=== PATIENT | female | born 1985 | race Caucasian/White ===

== ENCOUNTER 2020-10-21 12:01 | Emergency (ER) | payer SELFPAY ==
[2020-10-21 14:04] LABS: Urine Blood Negative (Negative); Urine Glucose Negative (Negative); Urine Protein Negative (Negative); Urine pH 7.5 (5.0-7.0)
[2020-10-21] MEDS ORDERED: NA CHLORIDE 0.9% 1,000 ML ONE (14:12)
--- NOTE | 2020-10-21 14:20 | RAD REPORT ---
EXAM DESCRIPTION: CT - Head Brain Wo Cont - 10/21/2020 2:03 pm CLINICAL HISTORY: HEADACHE COMPARISON: <Comparisons> TECHNIQUE: Axial 5 mm thick images of the head were obtained without IV contrast. All CT scans are performed using dose optimization technique as appropriate and may include automated exposure control or mA/KV adjustment according to patient size. FINDINGS: No intracranial hemorrhage, mass, edema or shift of mid-line structures. No acute infarcti on changes seen. No abnormal extra-axial fluid collections. Ventricles are normal. Mastoid air cells and visualized portions of the paranasal sinuses are clear. No acute bony findings. IMPRESSION: Negative non-contrast CT head examination.
[2020-10-21 14:29] LABS: Absolute Lymphocytes (CBC) 1.8 K/uL (0.7-4.9); Basophils % 1.1 % (0-1.3); Hematocrit 39.8 % (36.0-45.0); Lymphocytes % 30.6 % (15.3-44.8); MPV 7.8 fL (7.6-11.3); RBC Red Blood Cell Count 4.01 M/uL (3.86-4.86)
[2020-10-21 14:42] LABS: Protime INR 0.93
[2020-10-21 14:46] LABS: Urine Bacteria <20 /HPF (<20); Urine RBC <5 /HPF (NONE SEEN)
[2020-10-21 14:49] LABS: Barbiturates NEGATIVE (NEGATIVE); Benzodiazepines NEGATIVE (NEGATIVE); Cocaine NEGATIVE (NEGATIVE); METHAMPHETAM NEGATIVE (NEGATIVE); Methadone NEGATIVE (NEGATIVE); Opiates NEGATIVE (NEGATIVE); Phencyclidine NEGATIVE (NEGATIVE); THC Cannibis POSITIVE (NEGATIVE)
[2020-10-21 15:11] LABS: ALT/SGPT 16 U/L (12-78); AST/SGOT 9 U/L (15-37); Albumin 3.6 g/dL (3.4-5.0); Alkaline Phosphatase 47 U/L (45-117); BUN Blood Urea Nitrogen 6 mg/dL (7-18); Bicarbonate 28 mmol/L (21-32); Bilirubin Direct < 0.1 mg/dL (0-0.2); Bilirubin Total 0.2 mg/dL (0.2-1.0); Glucose Level 87 mg/dL (74-106); Potassium 4.1 mmol/L (3.5-5.1); Protein, Total 6.1 g/dL (6.4-8.2); Sodium Level 141 mmol/L (136-145)
--- NOTE | 2020-10-21 19:48 | EDPHYS ---
Physician Documentation [facility] Name: Brittni Juarez Age: 35 yrs Sex: Female : 1985 Arrival Date: 10/21/2020 Time: 12:02 Bed 18 Private MD: ED Physician Elfego Orantes HPI: 10/21 14:03 This 35 yrs old Female presents to ER via Ambulatory with complaints of pm1 Headache - heat exhaustion, Suicidal Ideation. 14:03 The patient presents to the emergency department with suicide ideation. Onset: The pm1 symptoms/episode began/occurred 2 month(s) ago. Past psychiatric history: Prior diagnosis: bipolar disorder, PTSD, Psychiatric medications include: none, Primary psychiatric physician: the patient does not have a primary psychiatric physician, the patient has a previous inpatient psychiatric history, 1 year(s) ago, for suicidal ideation. Associated signs and symptoms: Pertinent positives; headache, Pertinent negatives: abdominal pain, chest pain, fever, nausea, shortness of breath, vomiting. Severity of symptoms: in the emergency department the symptoms are unchanged. The patient has not recently seen a physician. 14:03 Patient's plan is to cut her own throat. pm1 Historical: - Allergies: 12:21 Bactrim DS; ll1 12:21 Keflex; ll1 12:21 Erythromycin; ll1 - PMHx: 12:21 PTSD; bipolar 1; pre-diabetes; ll1 - PSHx: 12:21 Tubal ligation; growth removed from finger; ll1 - Immunization history:: Client reports having NOT received the Covid vaccine. Flu vaccine is up to date. - Social history:: Smoking status: Patient reports the use of cigarette tobacco products, smokes one-half pack cigarettes per day. ROS: 14:03 Constitutional: Negative for fever, chills, and weight loss, Eyes: Negative for injury, pm1 pain, redness, and discharge, ENT: Negative for injury, pain, and discharge, Neck: Negative for injury, pain, and swelling, Cardiovascular: Negative for chest pain, palpitations, and edema, Respiratory: Negative for shortness of breath, cough, wheezing, and pleuritic chest pain, Abdomen/GI: Negative for abdominal pain, nausea, vomiting, diarrhea, and constipation, Back: Negative for injury and pain. 14:03 : Negative for injury, bleeding, discharge, and swelling, MS/Extremity: Negative for injury and deformity, Skin: Negative for injury, rash, and discoloration. 14:03 Neuro: Positive for headache. Exam: 14:03 Constitutional: This is a well developed, well nourished patient who is awake, alert, pm1 and in no acute distress. Head/Face: Normocephalic, atraumatic. 14:03 Neck: Trachea midline, no thyromegaly or masses palpated, and no cervical lymphadenopathy. Supple, full range of motion without nuchal rigidity, or vertebral point tenderness. No Meningismus. 14:03 Back: No spinal tenderness. No costovertebral tenderness. Full range of motion. Skin: Warm, dry with normal turgor. Normal color with no rashes, no lesions, and no evidence of cellulitis. MS/ Extremity: Pulses equal, no cyanosis. Neurovascular intact. Full, normal range of motion. 14:03 Eyes: Exam is negative for acute changes, Extraocular movements: no acute changes, Conjunctiva: normal, no injection. 14:03 ENT: Exam is negative for acute changes, Mouth: Lips: normal, Oral mucosa: normal, pink and intact, moist. 14:03 Cardiovascular: Exam negative for acute changes, Rate: normal, Rhythm: regular, Pulses: no pulse deficits are appreciated, Edema: is not appreciated. 14:03 Respiratory: Exam negative for acute changes, respiratory distress, shortness of breath, Breath sounds: are clear throughout. 14:03 Abdomen/GI: Inspection: abdomen appears normal, Palpation: abdomen is soft and non-tender, in all quadrants. 14:03 Neuro: Exam negative for acute changes, Orientation: is normal, Mentation: is normal, Motor: is normal, moves all fours, Sensation: is normal, no obvious gross deficits. Vital Signs: 12:18 BP 139 / 97; Pulse 99; Resp 17; Temp 98.7; Pulse Ox 100% ; Weight 56.7 kg; Height 5 ft. ll1 1 in. (154.94 cm); Pain 8/10; 19:35 BP 108 / 66; Pulse 72; Resp 16; Temp 98.4; Pulse Ox 98% on R/A; mh5 10/22 07:44 BP 112 / 63; Pulse 71; Resp 17; Temp 98.6; Pulse Ox 99% ; rb3 10/21 12:18 Body Mass Index 23.62 (56.70 kg, 154.94 cm) ll1 MDM: 10/21 13:28 Patient medically screened. pm1 14:03 Data reviewed: vital signs. Data interpreted: Pulse oximetry: on room air is 100 %. pm1 Interpretation: normal. 17:36 ED course: Pending [facility] Evaluation. pm1 19:47 Counseling: I had a detailed discussion with the patient and/or guardian regarding: the pm1 historical points, exam findings, and any diagnostic results supporting the discharge/admit diagnosis, lab results, radiology results, the need to transfer to another facility, [facility] does not immediately have the required specialist. 10/22 00:58 ED course: Patient sleeping comfortably in bed. Patient reports continued feelings of pm1 suicidal ideation. 13:39 ED course: Patient with continued suicidal ideation. She is voluntarily and she wants pm1 to get help in an inpatient setting. 14:02 Physician consultation: MD Alfaro was contacted at 14:03, regarding regarding transfer, pm1 patient's condition, and will see patient. 10/21 13:44 Order name: Acetaminophen; Complete Time: 16:54 pm1 10/21 13:44 Order name: Basic Metabolic Panel; Complete Time: 16:54 pm1 10/21 13:44 Order name: CBC with Diff; Complete Time: 14:39 pm1 10/21 13:44 Order name: ETOH Level; Complete Time: 16:54 pm1 10/21 13:44 Order name: Hepatic Function; Complete Time: 16:54 pm1 10/21 13:44 Order name: PT-INR; Complete Time: 14:44 pm1 10/21 13:44 Order name: Ptt, Activated; Complete Time: 14:44 pm1 10/21 13:44 Order name: Salicylate; Complete Time: 14:48 pm1 10/21 13:44 Order name: Urine Drug Screen; Complete Time: 16:54 pm1 10/21 14:04 Order name: Urine Dipstick-Ancillary EDNM 10/21 14:05 Order name: Urine Microscopic Only iw 10/21 14:06 Order name: Urine Microscopic Only; Complete Time: 14:48 EDMS 10/21 17:01 Order name: Urine --Ancillary (enter results); Complete Time: 18:36 eb 10/21 17:42 Order name: COVID-19 : Document "Date of Symptom Onset" if Symptomatic. pm1 10/21 13:44 Order name: Urine Test (obtain specimen); Complete Time: 14:47 pm1 10/21 13:44 Order name: EKG; Complete Time: 13:44 pm1 10/21 13:44 Order name: EKG - Nurse/Tech; Complete Time: 16:19 pm1 10/21 13:44 Order name: IV Saline Lock; Complete Time: 14:24 pm10/21 13:44 Order name: Labs collected and sent; Complete Time: 14:24 pm10/21 13:44 Order name: Suicide Screening ([place]); Complete Time: 17:04 pm10/21 13:44 Order name: Urine Dipstick-Ancillary (obtain specimen); Complete Time: 14:24 pm10/21 13:44 Order name: CT Head Brain wo Cont; Complete Time: 14:21 pm10/21 17:46 Order name: Diet Regular; Complete Time: 17:47 [facility] 10/21 21:19 Order name: SARS-COV-2 RT PCR; Complete Time: 21:27 [facility] 10/22 09:02 Order name: Diet Regular; Complete Time: 09:02 rb3 Administered Medications: 10/21 14:14 Drug: NS 0.9% 1000 ml Route: IV; Rate: 1000 ml; Site: right antecubital; rb3 15:13 Follow up: IV Status: Completed infusion rb3 Disposition: 10/21/20 19:47 Transfer ordered to [facility]. Diagnosis is Suicidal ideations. - Reason for transfer: Specialty. - Accepting physician is MD. - Condition is Stable. - Problem is new. - Symptoms are unchanged. Addendum: 10/25/2020 11:33 Co-signature as Attending Physician, Elfego Orantes MD I agree with the assessment and c barba plan of care. Signatures: Dispatcher [employer] Elfego Moon MD MD cha Marinas, Patrick, KNOTTER KNOTTER pm1 Vernon Alvarez, RN RN ll1 Roxanne Gerard, KAREN RN rb3 Corrections: (The following items were deleted from the chart) 10/21 20:40 17:43 CORONAVIRUS ordered. [facility] 10/22 15:14 10/21 19:47 10/21/2020 19:47 Transfer ordered to Psych Facility. Diagnosis is Suicidal rb3 ideations. Reason for transfer: Specialty. Accepting physician is MD. Condition is Stable. Problem is new. Symptoms are unchanged. pm1
--- NOTE | 2020-10-21 19:48 | ER ---
Nurse's Notes [facility] Name: Brittni Juarez Age: 35 yrs Sex: Female : 1985 Arrival Date: 10/21/2020 Time: 12:02 Bed 18 Private MD: Diagnosis: Suicidal ideations Presentation: 10/21 12:18 Chief complaint: Patient states: Reports [facility] for 2 weeks. States she has been having ll1 suicidal thoughts for 2 months, "I'm gonna cut my own throat". Night terrors. No place to live, out in the heat constantly. Coronavirus screen: Client denies travel out of the [place] in the last 14 days. At this time, the client does not indicate any symptoms associated with coronavirus-19. Ebola Screen: Patient denies travel to an Ebola-affected area in the 21 days before illness onset. Initial Sepsis Screen: Does the patient meet any 2 criteria? HR > 90 bpm. No. Patient's initial sepsis screen is negative. Does the patient have a suspected source of infection? No. Patient's initial sepsis screen is negative. Risk Assessment: Do you want to hurt yourself or someone else? Patient reports desire/thoughts of hurting themselves or someone else. Provider notified. Onset of symptoms was August 21, 2020. 12:18 Method Of Arrival: Ambulatory ll1 12:18 Acuity: ALHAJI 2 ll1 Triage Assessment: 13:30 Headache History: The patient has had previous headaches and this one is similar to rb3 previous episodes. Historical: - Allergies: 12:21 Bactrim DS; ll1 12:21 Keflex; ll1 12:21 Erythromycin; ll1 - PMHx: 12:21 PTSD; bipolar 1; pre-diabetes; ll1 - PSHx: 12:21 Tubal ligation; growth removed from finger; ll1 - Immunization history:: Client reports having NOT received the Covid vaccine. Flu vaccine is up to date. - Social history:: Smoking status: Patient reports the use of cigarette tobacco products, smokes one-half pack cigarettes per day. Screenin:30 Abuse screen: Denies threats or abuse. Nutritional screening: No deficits noted. rb3 Tuberculosis screening: No symptoms or risk factors identified. Fall Risk None identified. Assessment: 13:30 General: Appears in no apparent distress. Behavior is calm, cooperative, Denies fever. rb3 Pain: Complains of pain in headache Pain currently is 7 out of 10 on a pain scale. Neuro: Level of Consciousness is awake, alert, obeys commands, Oriented to person, place, time, situation, Reports headache in entire. Cardiovascular: Patient's skin is warm and dry. Respiratory: Airway is patent Respiratory effort is even, unlabored, Respiratory pattern is regular, symmetrical. GI: No signs and/or symptoms were reported involving the gastrointestinal system. : No signs and/or symptoms were reported regarding the genitourinary system. 14:30 Reassessment: Patient appears in no apparent distress at this time. Patient and/or rb3 family updated on plan of care and expected duration. Pain level reassessed. Patient is alert, oriented x 3, equal unlabored respirations, skin warm/dry/pink. 15:22 Reassessment: Patient appears in no apparent distress at this time. No changes from rb3 previously documented assessment. 16:19 Reassessment: Patient appears in no apparent distress at this time. pt. resting with rb3 eyes closed, respirations even, unlabored. 17:04 Reassessment: Patient appears in no apparent distress at this time. No changes from rb3 previously documented assessment. 18:04 Reassessment: Patient appears in no apparent distress at this time. Pt. is resting with rb3 eyes closed, respirations even, unlabored. 18:20 Reassessment: Pt. is talking with [employer]Fire via iPad. rb3 19:00 Reassessment: Patient appears in no apparent distress at this time. No changes from jm8 previously documented assessment. Patient and/or family updated on plan of care and expected duration. Pain level reassessed. Patient is alert, oriented x 3, equal unlabored respirations, skin warm/dry/pink. 20:00 Reassessment: Patient appears in no apparent distress at this time. No changes from jm8 previously documented assessment. Patient and/or family updated on plan of care and expected duration. Pain level reassessed. Patient is alert, oriented x 3, equal unlabored respirations, skin warm/dry/pink. 21:00 Reassessment: Patient appears in no apparent distress at this time. No changes from jm8 previously documented assessment. Patient and/or family updated on plan of care and expected duration. Pain level reassessed. Patient is alert, oriented x 3, equal unlabored respirations, skin warm/dry/pink. 22:00 Reassessment: Patient appears in no apparent distress at this time. No changes from 8 previously documented assessment. Patient and/or family updated on plan of care and expected duration. Pain level reassessed. Patient is alert, oriented x 3, equal unlabored respirations, skin warm/dry/pink. 23:00 Reassessment: Patient appears in no apparent distress at this time. No changes from jm8 previously documented assessment. Patient and/or family updated on plan of care and expected duration. Pain level reassessed. Patient is alert, oriented x 3, equal unlabored respirations, skin warm/dry/pink. 10/22 00:00 Reassessment: Patient appears in no apparent distress at this time. No changes from 8 previously documented assessment. Patient and/or family updated on plan of care and expected duration. Pain level reassessed. Patient is alert, oriented x 3, equal unlabored respirations, skin warm/dry/pink. 01:00 Reassessment: Patient appears in no apparent distress at this time. No changes from 8 previously documented assessment. Patient and/or family updated on plan of care and expected duration. Pain level reassessed. Patient is alert, oriented x 3, equal unlabored respirations, skin warm/dry/pink. 02:01 Reassessment: Patient appears in no apparent distress at this time. No changes from 8 previously documented assessment. Patient and/or family updated on plan of care and expected duration. Pain level reassessed. Patient is alert, oriented x 3, equal unlabored respirations, skin warm/dry/pink. 03:00 Reassessment: Patient appears in no apparent distress at this time. No changes from 8 previously documented assessment. Patient and/or family updated on plan of care and expected duration. Pain level reassessed. Patient is alert, oriented x 3, equal unlabored respirations, skin warm/dry/pink. 04:00 Reassessment: Patient appears in no apparent distress at this time. No changes from 8 previously documented assessment. Patient and/or family updated on plan of care and expected duration. Pain level reassessed. Patient is alert, oriented x 3, equal unlabored respirations, skin warm/dry/pink. 05:00 Reassessment: Patient appears in no apparent distress at this time. No changes from jm8 previously documented assessment. Patient and/or family updated on plan of care and expected duration. Pain level reassessed. Patient is alert, oriented x 3, equal unlabored respirations, skin warm/dry/pink. 06:00 Reassessment: Patient appears in no apparent distress at this time. jm8 07:00 Reassessment: Pt resting with eyes closed, respirations even, unlabored. rb3 08:00 Reassessment: Patient appears in no apparent distress at this time. No changes from rb3 previously documented assessment. 09:00 Reassessment: Patient appears in no apparent distress at this time. pt. is resting with rb3 eyes closed, respirations even, unlabored. 10:00 Reassessment: Patient appears in no apparent distress at this time. No changes from rb3 previously documented assessment. 11:00 Reassessment: Patient appears in no apparent distress at this time. pt. is resting with rb3 eyes closed, respirations even, unlabored. Responds when spoken to. 12:00 Reassessment: Pt. is resting with eyes closed, respirations even, unlabored. rb3 12:30 Reassessment: Gave report to KAREN Crawford at [facility]. She requested that Dr. Orantes rb3 contacts the [facility] Resident at [phone]. Gurinder Parsons Clerk notified. 13:00 Reassessment: Patient appears in no apparent distress at this time. Pt is resting with rb3 eyes closed, respirations even, unlabored. 14:00 Reassessment: Patient appears in no apparent distress at this time. No changes from rb3 previously documented assessment. 15:00 Reassessment: Patient appears in no apparent distress at this time. Pt. is resting with rb3 eyes closed, respirations even, unlabored. Vital Signs: 10/21 12:18 BP 139 / 97; Pulse 99; Resp 17; Temp 98.7; Pulse Ox 100% ; Weight 56.7 kg; Height 5 ft. ll1 1 in. (154.94 cm); Pain 8/10; 19:35 BP 108 / 66; Pulse 72; Resp 16; Temp 98.4; Pulse Ox 98% on R/A; mh5 10/22 07:44 BP 112 / 63; Pulse 71; Resp 17; Temp 98.6; Pulse Ox 99% ; rb3 10/21 12:18 Body Mass Index 23.62 (56.70 kg, 154.94 cm) ll1 ED Course: 10/21 12:02 Patient arrived in ED. am2 12:20 Triage completed. ll1 12:21 Arm band placed on. ll1 13:25 Patient placed in an exam room, on a stretcher. iw 13:28 Dalton Leon, KAYE is PHCP. pm1 13:28 Elfego Orantes MD is Attending Physician. pm1 13:30 Patient has correct armband on for positive identification. Bed in low position. Call rb3 light in reach. Side rails up X 1. Warm blanket given. 13:33 Roxanne Gerard, RN is Primary Nurse. rb3 14:03 CT Head Brain wo Cont In Process Unspecified. EDMS 14:14 Inserted saline lock: 22 gauge in right antecubital area, using aseptic technique. rb3 Blood collected. 17:27 called and spoke with Majo from the [facility]/ she will page out the screener eb national insurance officer. 18:15 COVID-19 : Document "Date of Symptom Onset" if Symptomatic. Sent. mh5 18:15 Urine Microscopic Only Sent. mh5 18:15 Urine Dipstick-Ancillary Sent. mh5 18:16 Misael from the [facility] called to do a screening with the patient/ connected eb patient with Misael via video chat on the iphone. 19:31 Primary Nurse role handed off by Roxanne Gerard, RN mw2 21:30 faxed patient information to [facility], [address], [facility], [facility], [facility], [facility], [facility]. 10/22 07:42 Roxanne Gerard, RN is Primary Nurse. rb3 12:27 connected Yvette from [facility] with Roxanne Gauthier for nurse to nurse consultation. eb 12:42 paged the [facility] Resident at [phone]/. eb 13:32 paged the [facility] Resident again . eb 13:[address] Alfaro the [facility] Resident national insurance officer with Dalton Avitia Np for eb patient transfer consultation. 14:58 IV discontinued, intact, bleeding controlled, No redness/swelling at site. Pressure dh3 dressing applied. 15:14 No provider procedures requiring assistance completed. rb3 Administered Medications: 10/21 14:14 Drug: NS 0.9% 1000 ml Route: IV; Rate: 1000 ml; Site: right antecubital; rb3 15:13 Follow up: IV Status: Completed infusion rb3 Outcome: 19:47 ER care complete, transfer ordered by MD. pm1 10/22 15:14 Patient left the ED. rb3 15:14 Transferred by ground EMS Transfer form completed. Note: Transferred to [place] rb3 15:14 Condition: stable 15:14 Instructed on the need for transfer. Signatures: Dispatcher [employer] EDMS Nohelia Amezquita, RN KAREN iw Dalton Leon NP UPHOLSTERY RESTORER pm1 Ileana Blunt 5 Gerda Gutierrez Rubina Roger 3 Mg Frost 2 Jaqueline Wheeler Lynsay, RN RN 1 Roxanne Gerard RN RN rb3 Ryne Navarrete, RN KAREN [email or web address] Corrections: (The following items were deleted from the chart) 10/21 20:40 18:15 CORONAVIRUS drawn and sent. [facility] EDLA 21:50 21:00 General: win [place] 10/22 12:29 12:18 [facility] called to decline the patient in transfer/ they do not eb have any beds available at this time. eb
[2020-10-22 15:45] VITALS: BP 108/66; TEMP 98.4; O2SAT 98
--- NOTE | 2020-10-23 15:53 | EKG ---
Test Date: 2020-10-21 Test Time: 14:56:09 Rehabilitation Manager: KHANH MEASUREMENT RESULTS: Intervals: Rate: 62 MI: 172 QRSD: 90 QT: 414 QTc: 420 [place]: P: 67 MI: 172 QRS: 105 T: 49 INTERPRETIVE STATEMENTS: Normal sinus rhythm Rightward axis Borderline ECG No previous ECG available for comparison Electronically Signed On 10-23-20 15:47:35 CDT by John Gandhi
== END 2020-10-22 15:14 ==
LOC: ER 12:01
DX: R45.851 Suicidal ideations (principal); F31.9 Bipolar disorder, unspecified; F17.210 Nicotine dependence, cigarettes, uncomplicated; Z20.822 Contact with and (suspected) exposure to COVID-19; Z88.1 Allergy status to other antibiotic agents; Z88.3 Allergy status to other anti-infective agents
CPT/HCPCS: 36415; 70450; 80048; 80076; 80307; 80320; 80329; 81003; 81015; 81025; 85025; 85610; 85730; 93005; 96360; 99285; J7030; U0003